=== PATIENT | female | born 1995 | race Caucasian/White ===

== ENCOUNTER 2016-09-22 17:02 | Emergency (ER) | payer SELFPAY ==
[~2016-09-22] VITALS: Ht 172.7 cm; Wt 156.0 kg
[2016-09-22] MEDS ORDERED: KEFLEX500 MG PO (18:07)
[2016-09-22] MEDS ORDERED: KENALOG,ARISTOC80 G1 TP (18:07)
[2016-09-22 18:19] VITALS: BP 143/79
== END 2016-09-22 18:23 | disposition home or self-care (01) ==
LOC: EME 17:02
DX: S50.862A Insect bite (nonvenomous) of left forearm, initial encounter (principal); L08.9 Local infection of the skin and subcutaneous tissue, unspecified; W57.XXXA Bitten or stung by nonvenomous insect and other nonvenomous arthropods, initial encounter
CPT/HCPCS: 99281; 99283

== ENCOUNTER 2017-06-28 15:46 | Emergency (ER) | payer SELFPAY ==
[~2017-06-28] VITALS: Ht 172.7 cm; Wt 147.9 kg
[~2017-06-28 15:46] MED LIST: KEFLEX500 MG PO; KENALOG,ARISTOC80 G1 TP
[2017-06-28 17:30] LABS: HEMATOCRIT 40.3 % (36.0-46.0); HEMOGLOBIN 12.7 G/DL (11.9-15.5); MCH 23.5 PG (29.0-34.0); MCHC 31.5 G/DL (30.0-36.0); MCV 74.5 FL (83-99); PLATELET COUNT 249 K/uL (156-360); RBC DIS.WIDTH-CV 14.9 % (11.8-14.6); RBC DIS.WIDTH-SD 39.9 % (39-53); RED BLOOD COUNT 5.41 M/uL (3.80-5.20); WHITE BLOOD COUNT 12.6 K/uL (4.1-10.2)
[2017-06-28 17:35] LABS: ALBUMIN 4.1 g/dL (3.2-4.8); CHLORIDE 103 mEq/L (99-109); POTASSIUM 4.2 mEq/L (3.7-5.4); SODIUM 140 mEq/L (136-147)
[2017-06-28 17:37] LABS: GLUCOSE 107 mg/dL (70-99); TOTAL PROTEIN 7.3 g/dL (6.4-8.3)
[2017-06-28 17:39] LABS: TOTAL BILIRUBIN 0.3 mg/dL (0.0-1.0)
[2017-06-28 17:41] LABS: ALKALINE PHOSPHATASE 70 IU/L (3-129); CREATININE 0.8 mg/dL (0.6-1.3); GFR ESTIMATE (CALCULATED) > 59 mL/min/
[2017-06-28 17:42] LABS: AST (GOT) 16 IU/L (2-34); UREA NITROGEN (BUN) 18 mg/dL (9-23)
[2017-06-28 17:44] LABS: ALT (GPT) 14 IU/L (3-49)
[2017-06-28 17:51] LABS: QUANTITATIVE HCG < 4.0 MIU/ML
[2017-06-28 19:00] VITALS: BP 137/76
== END 2017-06-28 19:10 | disposition home or self-care (01) ==
LOC: EME 15:46
DX: N93.9 Abnormal uterine and vaginal bleeding, unspecified (principal); N94.6 Dysmenorrhea, unspecified; Z80.49 Family history of malignant neoplasm of other genital organs
CPT/HCPCS: 80053; 81003; 84702; 85027; 99281; 99284